=== PATIENT | male | born 1980 | race Caucasian/White ===

== ENCOUNTER 2017-04-13 22:36 | Emergency (ER) | payer SELFPAY ==
[~2017-04-13] VITALS: Ht 175.3 cm; Wt 74.8 kg
[~2017-04-13 22:36] MED LIST: AMOX200S6 PO
[2017-04-13 22:43] VITALS: BP 143/74
--- NOTE | 2017-04-13 22:53 | NUR ---
PT DECIDED TO LEAVE AFTER TRIAGE.
== END 2017-04-13 22:54 | disposition left against medical advice (07) ==
LOC: ER 22:39
DX: Z53.21 Procedure and treatment not carried out due to patient leaving prior to being seen by health care provider (principal)
CPT/HCPCS: A4606; Z7610

== ENCOUNTER 2017-09-18 01:25 | Emergency (ER) | payer OTHER ==
--- NOTE | 2017-09-18 01:54 | NUR ---
PT'S NAME CALLED THREE TIMES, NO RESPONSE. PER [employer]URITY STAFF, PT WALKED OFF OF PROPERTY. MADE AWARE
--- NOTE | 2017-09-18 01:55 | NUR ---
Patient eloped from facility. ER MD notified.
== END 2017-09-18 01:57 | disposition left against medical advice (07) ==
LOC: ER 01:28
DX: Z53.21 Procedure and treatment not carried out due to patient leaving prior to being seen by health care provider (principal)
CPT/HCPCS: A4606; Z7610

== ENCOUNTER 2019-08-14 20:25 | Emergency (ER) | payer MEDICAID, OTHER ==
[~2019-08-14] VITALS: Ht 172.7 cm; Wt 74.8 kg
[2019-08-14 20:25] VITALS: BP 155/104
== END 2019-08-14 20:48 | disposition home or self-care (01) ==
LOC: ER 20:27
DX: T18.128A Food in esophagus causing other injury, initial encounter (principal); Z98.890 Other specified postprocedural states; Z60.2 Problems related to living alone; Z79.899 Other long term (current) drug therapy; W45.8XXA Other foreign body or object entering through skin, initial encounter; Y93.89 Activity, other specified; Y92.89 Other specified places as the place of occurrence of the external cause; Y99.8 Other external cause status

== ENCOUNTER 2024-04-18 01:17 | Emergency (ER) | payer MEDICAID, OTHER ==
[~2024-04-18] VITALS: Ht 172.7 cm; Wt 77.1 kg
[2024-04-18] MEDS ORDERED: ONDANSETRON HCL/PF 4 MG/2 ML VIAL ONE (01:48)
[2024-04-18] MEDS ORDERED: PANTOPRAZOLE 40 MG VIAL ONE (01:48)
[2024-04-18] MEDS: ONDANSETRON HCL/PF 4 MG/2 ML VIAL IVP ONE (01:55)
[2024-04-18] MEDS: PANTOPRAZOLE 40 MG VIAL IV ONE (01:55)
[2024-04-18] MEDS: IV NS 0.9% 1,000 ML BAG IV ONE (01:55)
[2024-04-18 02:04] LABS: BASOPHILS % (AUTO) 0.2 % (0.0-2.0); EOSINOPHILS % (AUTO) 0.5 % (0.0-6.0); HEMATOCRIT 47 % (39-51); HEMOGLOBIN 17.2 g/dL (13.5-17.5); LYMPHOCYTES # (AUTO) 0.4 K/uL (0.8-4.8); LYMPHOCYTES % (AUTO) 5.9 % (20.0-44.0); MEAN CORPUSCULAR HEMOGLOBIN 30 PG (26.0-33.0); MEAN CORPUSCULAR HGB CONC 37 g/dl (31.0-36.0); MEAN CORPUSCULAR VOLUME 83 fL (80-96); MONOCYTES # (AUTO) 0.4 K/uL (0.1-1.30); MONOCYTES % (AUTO) 5.5 % (2.0-12.0); NEUTROPHILS # (AUTO) 6.2 K/uL (1.8-8.9); NEUTROPHILS % (AUTO) 87.9 % (43.0-81.0); PLATELET COUNT (AUTO) 118 K/uL (150-450); RED BLOOD CELL COUNT(AUTO) 5.66 MIL/uL (4.5-6.0); RED CELL DISTRIBUTION WIDTH 13.7 % (11.5-15.0)
[2024-04-18 02:13] LABS: CALCIUM, SERUM 8.6 mg/dL (8.5-10.1); CREATININE 1.1 mg/dL (0.6-1.3); POTASSIUM 3.4 mmol/L (3.5-5.1)
[2024-04-18 02:20] LABS: LACTIC ACID 1.2 mmol/L (0.4-2.0)
[2024-04-18 02:22] LABS: INR 1.19 (0.91-1.10); PARTIAL THROMBOPLASTIN TIME 28.3 SEC (24.3-34.3); PROTHROMBIN TIME 12.5 SECS (9.2-11.1)
[2024-04-18 02:27] LABS: ALBUMIN 3.6 g/dL (3.4-5.0); BILIRUBIN,DIRECT 0.4 mg/dL (0.0-0.2)
[2024-04-18] MEDS ORDERED: ONDA4TAB11 PO (02:58)
[2024-04-18 03:16] VITALS: BP 122/75; TEMP 98.2; O2SAT 98
== END 2024-04-18 03:16 | disposition home or self-care (01) ==
LOC: ER 01:20
DX: R11.2 Nausea with vomiting, unspecified (principal); K92.1 Melena; R00.0 Tachycardia, unspecified; Z88.1 Allergy status to other antibiotic agents; Z60.2 Problems related to living alone
CPT/HCPCS: 99285; 96374; 71045; 96361; 96375; 93005; 85025; 80048; 83605; 83690; 80076; 36415; 85730; 86850; J2405; J7030; J2470